=== PATIENT | female | born 1985 | race Two or more races ===

== ENCOUNTER → 2017-03-17 | Outpatient (CLI) | payer OTHER | END | disposition home or self-care (01) | LOC: LAB 12:33 | PROVIDERS: ATTEND Preventive Medicine Preventive Medicine/Occupational Environmental Medicine | DX: Z02.1 Encounter for pre-employment examination (principal) | CPT/HCPCS: 36415; 86706 ==

== ENCOUNTER → 2017-07-20 | Outpatient (CLI) | payer BC ==
[2017-07-20 12:36] LABS: Cholesterol 204 mg/dL (< 200); HDL Cholesterol 58 mg/dL (40-59); LDL Cholesterol 138 mg/dL (< 100); Triglycerides 129 mg/dL (< 150)
== END | disposition home or self-care (01) ==
LOC: LAB 11:28
PROVIDERS: ATTEND Specialist
DX: E28.2 Polycystic ovarian syndrome (principal)
CPT/HCPCS: 36415; 80061; 83525; 84403